=== PATIENT | male | born 1995 | race Caucasian/White ===

== ENCOUNTER → 2018-02-28 | Outpatient (CLI) | payer OTHER ==
[~2018-02-28] MED LIST: AMOCLA875 PO; BISA10S PR; BISA5EC PO; CEFU250; CEPH500 PO; CETI10 PO; CETI5 PO; DIPH50 PO; DIVA125EC; DOCULAX PO; HYDPAM25 PO; Hair, Skin & N1 EACH PO; MAGCIT300 PO; MELA3 PO; METPHE10 PO; METPHE20ER PO; MULT50FEL PO; MULTIVIT WITH IRON PO; POLY17UD PO; PRED20 PO; PROBIOTIC; PROM25 PO; RISP.5; RISP2; SACC250C PO; SALMOI6.5 INH; SERT100 PO; TOPI25; ZONI100; [UNRECOGNIZED DRUG - OTHER] PO; docqlace PO; melatonin PO; probiotic PO
[2018-02-28 13:22] LABS: Source, Urine Clean Catch
[2018-02-28 15:24] LABS: Bilirubin, Urine Neg (Neg); Blood, Urine Neg (Neg); Glucose Qualitative, Urine Neg (Neg); Ketones, Urine Neg (Neg); Leukocyte Esterase, Urine Neg (Neg); Nitrite, Urine Neg (Neg); Protein, Urine Neg (Neg); Specific Gravity, Urine 1.015 (1.003-1.022); Urobilinogen, Urine NORM (Normal)
[2018-02-28 15:36] LABS: Appearance, Urine Clear (Clear); Color, Urine Pale Yellow (P-Yellow)
== END | disposition home or self-care (01) ==
LOC: LAB 12:45 → LAB SHORT 12:45
PROVIDERS: Hospitalist
DX: R30.0 Dysuria (principal)
CPT/HCPCS: 81003

== ENCOUNTER 2024-02-25 12:16 | Emergency (ER) | payer OTHER ==
[~2024-02-25] VITALS: Ht 182.9 cm; Wt 61.7 kg
[2024-02-25 12:33] VITALS: BP 106/67
[2024-02-25 13:24] LABS: Influenza A, PCR NEGATIVE (NEGATIVE); Influenza B, PCR NEGATIVE (NEGATIVE); Resp Syncytial Virus, PCR NEGATIVE (NEGATIVE); SARS-Cov-2 (COVID-19) PCR, MMC NEGATIVE (NEGATIVE)
== END 2024-02-25 13:37 | disposition home or self-care (01) ==
LOC: ER 12:16
PROVIDERS: Student in an Organized Health Care Education/Training Program
DX: R50.9 Fever, unspecified (principal); Z79.899 Other long term (current) drug therapy; Z88.8 Allergy status to other drugs, medicaments and biological substances
CPT/HCPCS: 0241U; 99283